=== PATIENT | female | born 1990 | race Caucasian/White ===

== ENCOUNTER → 2018-12-02 14:48 | Outpatient (CLI) | payer SELFPAY ==
--- NOTE | 2018-12-02 15:08 | ECG_ITS ---
APPROVED REPORT Exam: Resting ECG HR:73 bpm ECG Measurements Heart Rate 73 AXES ND 142 P 66 QRSd 110 QRS 49 QT 404 T 55 QTc 445 <Conclusion> Normal sinus rhythm Incomplete right bundle branch block Borderline ECG Electronically signed by : Anmol Grande, 12/04/2018 14:11:40
[2018-12-02 15:24] LABS: Urine Pregnancy, HCG Qual. Positive (Negative)
[2018-12-02 16:04] LABS: Basophils # 0.1 K/mm3 (0-0.2); Basophils % 0.7 % (0.1-2.0); Eosinophils # 0.5 K/mm3 (0.0-0.4); Eosinophils % 8.3 % (0.1-12.0); Hemoglobin 12.4 g/dL (12.2-16.2); Lymphocytes # 1.8 K/mm3 (0.7-4.5); Lymphocytes % 28.7 % (10-50); Mean Corpuscular HGB Conc 32.5 g/dL (31.8-35.4); Mean Corpuscular Hemoglobin 32.1 pg (27.0-31.2); Mean Corpuscular Volume 98.6 fl (81-99); Monocytes # 0.4 K/mm3 (0.1-1.0); Monocytes % 5.9 % (1.7-9.3); Neutrophils # 3.4 K/mm3 (1.8-7.8); Neutrophils % 56.2 % (37.0-80.0); Platelet Count 296 K/mm3 (142-424); Red Blood Count 3.86 M/mm3 (4.20-5.40); Red Cell Distribution Width 12.1 % (11.5-17.5); White Blood Count 6.1 K/mm3 (4.8-10.8)
[2018-12-12 02:59] LABS: Cotinine 2164.9 ng/mL (.); Nicotine 2251.7 ng/mL (.)
== END ==
PROVIDERS: Visit Provider Podiatrist
DX: Z01.818 Encounter for other preprocedural examination (principal); S82.51XA Displaced fracture of medial malleolus of right tibia, initial encounter for closed fracture
CPT/HCPCS: 36415; 80323; 81025; 85025; 93005; G0480

== ENCOUNTER → 2018-12-13 13:23 | Outpatient (CLI) | payer OTHER, SELFPAY ==
--- NOTE | 2018-12-13 13:34 | US_ITS ---
PROCEDURE: US OB TRANSVAGINAL CLINICAL INDICATION: US OB Dates COMPARISON: TVP US TRANSVAGINAL PREG from 06/30/2015 FINDINGS: An intrauterine gestational sac is present with a pole with a crown-rump length of 0.63 cm correlating to gestational age of 6 weeks 4 days. heart tones are present with an FHR of 126 bpm. Yolk sac is noted. 2 cm right ovarian corpus luteum cyst IMPRESSION: Live intrauterine gestation at 6 weeks 4 days Estimated due date by Ultrasound is 08/04/2019 Dictated by: Daniel Barrientos MD 12/13/2018 19:32 Electronically signed by Daniel Barrientos MD in [place] 12/13/2018 19:32
[2018-12-13 14:31] LABS: HCG,Quantitative 99537 mIU/mL
== END ==
PROVIDERS: Visit Provider Obstetrics & Gynecology
DX: Z34.90 Encounter for supervision of normal pregnancy, unspecified, unspecified trimester (principal); O26.841 Uterine size-date discrepancy, first trimester
CPT/HCPCS: 36415; 76817; 84702

== ENCOUNTER → 2018-12-30 14:08 | Outpatient (CLI) | payer OTHER, SELFPAY ==
--- NOTE | 2018-12-30 14:58 | MR_ITS ---
PROCEDURE: MR ANKLE RT WO/W CON CLINICAL INDICATION: right ankle pain, peroneal tendinitis Posttraumatic pain, fracture of the medial malleolus along with lateral ankle pain and tenderness High ankle sprain, ATFL sprain/tear, syndesmosis rupture, peroneal tendinitis COMPARISON: XR ANKLE RT MIN 3V from 11/23/2018 TECHNIQUE: Routine multiplanar multi echo sequences are performed without gadolinium enhancement. The patient is in first-trimester . Gadolinium was not given due to this fact and due to the general recommendations of the literature regarding risk benefit ratio. The nonenhanced images were reviewed and was not felt that the gadolinium enhancement would add to the overall impression. A T2 sagittal stir image was a head to sequences which nicely demonstrated the peroneal tendons with decrease magic angle artifact FINDINGS: There is abnormal signal intensity within the medial malleolar region. A nondisplaced oblique fracture involves the tip of the medial malleolus as noted on the radiograph with moderate amount of edema in this region. There also moderate amount of bone marrow edema of the medial aspect of the talus and at the neck of the talus consistent with a bone bruise. The calcaneus, navicular, cuboid, and cuneiforms have an unremarkable appearance. There is increased T2 signal with edema of the anterior tibiofibular ligament consistent with sprain/partial tear. There is complete tear of the ATFL. There is some mild edema of the PT FL which may represent sprain. A partial tear is not excluded although fibers do appear intact. There is increased T2 signal at the deltoid ligament region with sparsely of the fibers suggesting a partial tear. Slight increased T2 signal involves the distal aspect of the peroneal longus tendon suggesting partial tear or tendinitis. The tibialis posterior, flexor digitorum longus, and flexor hallucis longus as well as Achilles tendon and extensor tendons have an unremarkable appearance. There is also transverse decreased T1 and increased T2 signal at the region of the epiphyseal remnant of the distal tibia. One would not expect this appearance in a patient of 28 years of age. This could be due to an area of extensive osteopenia at the epiphyseal remnant versus a nondisplaced fracture. IMPRESSION: 1. Tear of the ATFL with suspected sprain of the PT FL 2. Partial tear versus sprain of the anterior tibiofibular ligament 3. Fracture of the medial malleolus with extensive bone marrow edema of the medial malleolus and talus consistent with bone contusion 4. Sprain/partial tear of the deltoid ligament 5. Epiphyseal remnant extensive posttraumatic osteopenia versus nondisplaced transverse fracture at the epiphyseal remnant of the distal tibia 6. Partial tear versus sprain of the distal aspect of the peroneal longus tendon. A complete tear is not felt to be present. Dictated by: Daniel Barrientos MD 12/30/2018 16:18 Electronically signed by Daniel Barrientos MD in [place] 01/01/2019 08:49
== END ==
PROVIDERS: Visit Provider Podiatrist
DX: M76.71 Peroneal tendinitis, right leg (principal); M25.571 Pain in right ankle and joints of right foot; S93.491A Sprain of other ligament of right ankle, initial encounter; S93.431A Sprain of tibiofibular ligament of right ankle, initial encounter
CPT/HCPCS: 73721

== ENCOUNTER → 2019-01-03 15:31 | Outpatient (CLI) | payer OTHER, SELFPAY ==
[2019-01-03 16:16] LABS: Basophils % 0.4 % (0.1-2.0); Eosinophils # 0.2 K/mm3 (0.0-0.4); Eosinophils % 4.2 % (0.1-12.0); Hematocrit 36.7 % (37.0-47.0); Lymphocytes # 1.1 K/mm3 (0.7-4.5); Lymphocytes % 19.1 % (10-50); Mean Corpuscular HGB Conc 32.7 g/dL (31.8-35.4); Mean Corpuscular Hemoglobin 32.7 pg (27.0-31.2); Mean Corpuscular Volume 99.9 fl (81-99); Mean Platelet Volume 7.8 fl (7.4-10.4); Monocytes # 0.2 K/mm3 (0.1-1.0); Monocytes % 3.9 % (1.7-9.3); Neutrophils # 4.2 K/mm3 (1.8-7.8); Neutrophils % 72.4 % (37.0-80.0); Platelet Count 258 K/mm3 (142-424); Red Blood Count 3.67 M/mm3 (4.20-5.40); Red Cell Distribution Width 12.7 % (11.5-17.5); White Blood Count 5.7 K/mm3 (4.8-10.8)
[2019-01-05 06:12] LABS: Hepatitis B Surface Antigen Negative (Negative); Hepatitis C Antibody <0.1 s/co ratio (0.0-0.9)
[2019-01-05 11:21] LABS: HIV Screen 4th Generation wRfx Non Reactive (Non Reactive); Rapid Plasma Reagin Ab Titer Non Reactive (NonRea<1:1)
== END ==
PROVIDERS: Visit Provider Nurse Practitioner Obstetrics & Gynecology
DX: Z34.90 Encounter for supervision of normal pregnancy, unspecified, unspecified trimester (principal)
CPT/HCPCS: 36415; 85025; 86592; 86703; 86762; 86850; 87340; 87380; G0432

== ENCOUNTER → 2019-03-20 12:58 | Outpatient (CLI) | payer OTHER, SELFPAY ==
--- NOTE | 2019-03-20 12:59 | US_ITS ---
PROCEDURE: US OB /MATERNAL DETAIL CLINICAL INDICATION: screening for chromosomal anomalies Anatomy exam, complete OB ultrasound COMPARISON: US OB TRANSVAGINAL from 12/13/2018 FINDINGS: There is a single live fetus in cephalic presentation. Placenta is anterior and grade 1. Cervix is closed measuring 4.8 cm transabdominal. Complete survey performed and was unremarkable on the submitted images as in PACS. No discrete anomalies identified on survey imaging by technologist. Active fetus. Three-vessel cord with satisfactory umbilical cord insertion. 4- chamber heart noted. Survey of brain & ventricles Unremarkable. Face and neck survey unremarkable. Diaphragm and chest views unremarkable. Abdomen: Both kidneys noted and unremarkable. Stomach noted and satisfactory. Spine: Survey of the spine satisfactory with no anomalies identified nor imaged. Both arms and legs noted. Amniotic Fluid: Adequate. Maternal adnexa: No significant findings. Measurements: Average ultrasound age 20weeks 3days. Gestational Age 20weeks 3days Estimated due date by ultrasound age 0608/04/2019. Estimated weight 343g BPD = 21weeks OFD = 20 weeks 6 days HC = 20weeks 1day AC = 20weeks 3days FL = 20weeks 1day Growth Percentile= 37% Heart Rate = 146bpm Cerebellum = 20weeks 2days Humerus = 21weeks 3days HC/AC is 1.16 CI is 0.8 FL/BPD is 0.66 FL/AC is 0.21 IMPRESSION: Live IUP in breech presentation with an average ultrasound age of 20 weeks 3 days. heart body motion noted. No obvious anomalies. Please see above for detail Dictated by: Daniel Barrientos MD 03/20/2019 17:28 Electronically signed by Daniel Barrientos MD in [place] 03/20/2019 17:28
== END ==
PROVIDERS: PCP Nurse Practitioner; Visit Provider Nurse Practitioner Obstetrics & Gynecology
DX: Z36.0 Encounter for antenatal screening for chromosomal anomalies (principal)
CPT/HCPCS: 76811

== ENCOUNTER → 2019-05-01 17:27 | Outpatient (CLI) | payer OTHER, SELFPAY | PROVIDERS: Visit Provider Nurse Practitioner Obstetrics & Gynecology | DX: Z34.90 Encounter for supervision of normal pregnancy, unspecified, unspecified trimester (principal) | CPT/HCPCS: 36415 ==

== ENCOUNTER 2019-05-03 16:10 | Outpatient (CLI) | payer OTHER, SELFPAY ==
[2019-05-03 16:30] VITALS: BP 132/70; PULSE 70; RESP 18; O2SAT 95
== END 2019-05-03 16:30 | disposition home or self-care (01) ==
LOC: INF 16:37
PROVIDERS: PCP Nurse Practitioner; Visit Provider Nurse Practitioner Obstetrics & Gynecology
DX: Z34.90 Encounter for supervision of normal pregnancy, unspecified, unspecified trimester (principal)
CPT/HCPCS: 96372; J2790

== ENCOUNTER → 2019-07-11 16:02 | Outpatient (CLI) | payer OTHER, SELFPAY | PROVIDERS: Visit Provider Nurse Practitioner Obstetrics & Gynecology | DX: Z34.90 Encounter for supervision of normal pregnancy, unspecified, unspecified trimester (principal) | CPT/HCPCS: 86403 ==

== ENCOUNTER 2019-08-02 06:21 | Inpatient (IN) | payer OTHER, SELFPAY ==
[2019-08-02 06:26] VITALS: BMI 33.6
[2019-08-02 06:40] VITALS: BP 119/69; PULSE 76; RESP 18; TEMP 36.5; O2SAT 98
[2019-08-02 07:11] VITALS: BP 119/69; PULSE 76; RESP 18; TEMP 36.5; O2SAT 98; BMI 33.6
[2019-08-02 07:33] LABS: Microscopic, Urine URINE MICROSCOPIC (MICROSCOPIC)
[2019-08-02 07:36] LABS: Appearance,Urine CLOUDY (Clear); Bilirubin,Urine Negative (Negative); Blood, Urine 1+ (Negative); Color,Urine YELLOW (Yellow); Glucose,Urine (UA) Negative (Negative); Ketones,Urine Negative (Negative); Leukocyte Esterase,Urine 3+ (Negative); Nitrate,Urine Negative (Negative); Protein,Urine Negative (Negative); Specific Gravity, Urine <= 1.005 (1.005-1.030); Urobilinogen,Urine 0.2 EU/dl (0.2)
[2019-08-02 07:46] LABS: Barbiturates Screen,Urine Negative ng/ml (<200)
[2019-08-02 07:47] LABS: Amphetamine/Metha Screen,Urine Negative ng/ml (<1000); Benzodiazepines Screen,Urine Negative ng/ml (<200)
[2019-08-02 07:48] LABS: Cannabinoid Screen,Urine Positive ng/ml (<50); Cocaine Screen,Urine Negative ng/ml (<300)
[2019-08-02 07:49] LABS: Methadone Screen,Urine Negative ng/ml (<300)
[2019-08-02 07:50] LABS: Bacteria,Urine 1+ /lpf; Opiate Screen,Urine Negative ng/ml (<300); Squamous Epithelial Cell,Urine 20-50 #/hpf (0-5); WBC,Urine 20-50 #/hpf (0-3)
[2019-08-02 07:51] LABS: Phencyclidine Screen,Urine Negative ng/ml (<25)
[2019-08-02 08:15] LABS: Basophils % 0.5 % (0.1-2.0); Eosinophils # 0.3 K/mm3 (0.0-0.4); Eosinophils % 3.8 % (0.1-12.0); Hematocrit 33.8 % (37.0-47.0); Hemoglobin 11.5 g/dL (12.2-16.2); Lymphocytes # 1.4 K/mm3 (0.7-4.5); Lymphocytes % 17.6 % (10-50); Mean Corpuscular Hemoglobin 31.5 pg (27.0-31.2); Mean Corpuscular Volume 92.6 fl (81-99); Mean Platelet Volume 8.8 fl (7.4-10.4); Monocytes # 0.5 K/mm3 (0.1-1.0); Monocytes % 5.8 % (1.7-9.3); Neutrophils # 5.8 K/mm3 (1.8-7.8); Neutrophils % 72.4 % (37.0-80.0); Platelet Count 258 K/mm3 (142-424); Red Blood Count 3.65 M/mm3 (4.20-5.40); Red Cell Distribution Width 13.9 % (11.5-17.5)
--- NOTE | 2019-08-02 08:18 | HMH.PHAINT ---
MEDICATION RECONCILIATION COMPLETED ON PATIENT USING EXTERNAL FILL HISTORY FROM PHARMACY. -HAYDER BACA, ALEXD
[2019-08-02 08:19] LABS: Coronavirus 19 IgG Antibody Negative (Negative); Coronavirus 19 IgM Antibody Negative (Negative)
[2019-08-02 08:30] VITALS: BP 122/70; PULSE 65; RESP 18; TEMP 36.8; O2SAT 98
--- NOTE | 2019-08-02 08:51 | HMH.LABNOT ---
Labor Note - Subjective: Date: 08/02/19 Time: 08:51 regular contraction - Objective: NST:: Reactive Contractions:: every 2-3 minutes Cervical Dilation:: 4 Effacement:: 100% Station: 0 Membranes: artificially ruptured - Fetus: Monitoring?: Yes monitoring type:: Internal and External Comment:: I inserted an IUPC - Assessment: Labor progressing?: Yes Cephalopelvic disproportion?: No Patient Problems: All Active Problems Vaginal bleeding in (Acute) (Acute) Ankle fracture (Acute) - Plan: Anesthesia for epidural?: Yes Continue to labor down?: Yes Plan for ?: No Continue to monitor?: Yes Start pushing?: No
--- NOTE | 2019-08-02 08:53 | HMH.OBAPHP ---
OB - H&P: HPI Antepartum - History of Present Illness Chief complaint: Term , irregular contractions History of present illness: She is a 29-year-old 3 para 2 at 39+ weeks gestational age. She has been having a few contractions as well as pressure and as result of that we have elected to induce her labor. - History of Present Criteria for establishing EDC:: LMP confirmed by 1st trimester US care: good care Ultrasounds: normal 1st trimester US, normal mid trimester US Obstetrical complications: none Medical complications: none [facility] History I have reviewed the patient's past medical history: Yes Medical History: Reports:: Anxiety, Gastroesophageal Reflux Disease(GERD), Migraine *Have you ever received a pneumonia vaccine?: No *Have you received a flu vaccine this season?: No Other Surgeries: Yes: No Previous Surgery, Other. No: Amputation: No Fractures: Yes (right foot) - *Social History Smoking Status: Current every day smoker Tobacco Type: cigarettes # Packs/Day (cigarettes): 1 #Yrs smoked (if former smoker): 12 Alcohol Intake: never Alcohol Intake Frequency:: holidays/special occasions only Substance Use Type: marijuana *Occupational Status:: unemployed Housing: house Household Members: significant other, children *Travel in the last 8 weeks: None - Psychiatric History Pschychiatric History:: Reports:: Anxiety Family Hx:: Non-contributory Para: 2 Review of Systems - Review of Systems Review of systems:: pertinent systems reviewed and negative unless documented below Meds Home Medications Medication Instructions Recorded Confirmed Type pediatric multivitamin no.49 2 tab PO DAILY tab 01/03/19 08/02/19 History albuterol sulfate 90 mcg/actuation 1 puff IH Q4HP PRN 02/13/19 08/02/19 History aerosol inhaler cetirizine 10 mg tablet 10 mg PO DAILY 02/13/19 08/02/19 History ondansetron 4 mg disintegrating 4 mg PO Q6H PRN #20 tab 07/11/19 08/02/19 Rx tablet Famotidine [Acid Laborer General] 20 mg PO DAILY 08/02/19 08/02/19 History Omeprazole Magnesium [Prilosec] 10 mg PO DAILY 08/02/19 08/02/19 History Allergies Allergy/AdvReac Type Severity Reaction Status Date / Time aspirin [ASPIRIN] Allergy Unknown Verified 08/02/19 07:14 ibuprofen [From MOTRIN] Allergy Unknown Verified 08/02/19 07:14 naproxen [NAPROXEN] Allergy Unknown Verified 08/02/19 07:14 nitrofurantoin Allergy Unknown Verified 08/02/19 07:14 [From MACROBID] sulfamethoxazole Allergy Unknown Verified 08/02/19 07:14 [From BACTRIM] trimethoprim [From BACTRIM] Allergy Unknown Verified 08/02/19 07:14 OB - H&P: Exam - Physical Exam Vital signs: Temp Pulse Resp BP Pulse Ox 97.7 F 76 18 119/69 98 08/02/19 07:11 08/02/19 07:11 08/02/19 07:11 08/02/19 07:11 08/02/19 07:11 - Constitutional no acute distress - Routine HEENT Exam Head: Present: normocephalic Eye: Present: EOMI, PERRL ENT: Present: mucous membranes moist - Routine Neck Exam Present: supple, full ROM - Routine Respiratory Exam Absent: accessory muscle use (good air entry bilaterally), respiratory distress, wheezes, crackles - Routine Cardiovascular Exam Present: RRR. Absent: murmur - Routine Abdominal Exam Present: soft, normoactive bowel sounds. Absent: tenderness, distended, guarding - Routine Rectal Exam Patient deferred: visual exam, digital exam - Routine Exam Patient deferred: external exam, groin exam, perineal exam - Routine Extremities Exam Present: full ROM. Absent: cyanosis, edema - Routine Skin Exam Present: intact. Absent: cyanosis - Routine Neurological Exam Present: alert, oriented X3 - Routine Psychiatric Exam Present: normal affect OB - Results - Labs Labs: Short CBC 08/02/19 Range/Units 08:05 WBC 8.0 (4.8-10.8) K/mm3 Hgb 11.5 L (12.2-16.2) g/dL Hct 33.8 L (37.0-47.0) % Plt Count 258 (142-424) K/mm3 Urine 08/02/19
--- NOTE | 2019-08-02 09:44 | P.PN_ITS ---
[facility] Anesthesia Checklist - Patient Identification Patient Identification: Arm Band, Verbal (Name & ) - Structural Data Admitted From: Home Planned Operative Procedure/s: Labor epidural Consent for Planned Operative Procedure(s) Verified: Yes Verified Documents: Surgical Consent, History and Physical - Chart Verification Results Verified: CBC, BMP, UA - Additional verifications Patient : Yes Anesthesia Reactions: No - Airway Assessment C-Spine Mobility Assessed: Yes TMJ Mobility Assessed: Yes Dentition: Edentulous - Neurological Assessment Level of Consciousness: Awake, Alert, Appropriate, Follows Commands Hx Seizures: No Numbness or tingling in extremities: No - Anesthesia Plan Anesthesia Risk discussed: Yes Anesthesia Plan: Verified ASA Class: III Anesthesia Type: Epidural [facility] History I have reviewed the patient's past medical history: Yes Medical History: Reports:: Anxiety, Gastroesophageal Reflux Disease(GERD), Migraine *Have you ever received a pneumonia vaccine?: No *Have you received a flu vaccine this season?: No Anesthesia experience/problems:: No prior complications Other Surgeries: Yes: Other. No: Amputation: No Fractures: Yes (right foot) - *Social History Smoking Status: Current every day smoker Tobacco Type: cigarettes # Packs/Day (cigarettes): 1 #Yrs smoked (if former smoker): 12 Alcohol Intake: never Alcohol Intake Frequency:: holidays/special occasions only Substance Use Type: marijuana *Occupational Status:: unemployed Housing: house Household Members: significant other, children *Travel in the last 8 weeks: None - Psychiatric History Pschychiatric History:: Reports:: Anxiety Family Hx:: Non-contributory Para: 2
[2019-08-02 11:35] LABS: Cord Blood PH 7.39 (7.35-7.45)
--- NOTE | 2019-08-02 13:32 | HMH.DN ---
- Delivery Note Delivery Date:: 08/02/19 Delivery Time:: 11:11 Anesthesia Type: Epidural Was labor medically induced?: Yes Induction method: per pitocin protocol Gestational age (weeks): 39 delivered prior to 39 weeks?: No Gender: Female at 1 minute: 8 at 5 minutes: 9 Delivery Procedure:: She is a 29-year-old 3 para 2 who is 39+ weeks gestational age. She was feeling pressure and was quite uncomfortable. Her last delivery was quite fast so we elected to bring her in for induction of labor. She was started on IV oxytocin had her membranes ruptured. Under labor epidural she progressed to full dilation and delivered spontaneously a liveborn female child at 11:11 AM on the morning of August 03, 2019. On deliver the head the anterior shoulder then rapidly delivered followed by the rest of the 's body atraumatically. The baby was stimulated and cried spontaneously. She was vigorous. The nasopharynx and oropharynx were bulb suction. We allowed the cord to continue to pulsate for 1 minute. The cord was then doubly clamped and cut and the was then placed on the mother's abdomen for further care. The nurses assigned Apgars of 8 at 1 minute and 9 at 5 minutes. We then obtained cord blood as well as cord pH. She received IV oxytocin and using gentle traction the cord and countertraction on the fundus I was able to easily deliver the placenta intact at 11:14 AM. He had a normal three-vessel cord. She has O Rh- blood. She is rubella immune. She was group B streptococcus negative. She plans to bottlefeed. Her estimated blood loss was approximately 400 cc. There were no perineal or vaginal lacerations. Placental Delivery Description: Spontaneous
--- NOTE | 2019-08-02 15:16 | SW/DCPLANNER ---
Addendum entered by Megan Cortes 08/24/19 09:49: CALLED CENTRAL INTAKE WITH CORD SCREEN RESULTS... AN ID# [id number] WAS GIVEN... Addendum entered by Tami Noyola 08/04/19 11:05: Zandra with CPS has stated that she spoke with patient via phone on 08/02 in AM. OB staff is currently holding this patient that is ready for discharge due to waiting on Cabinet. I have asked Zandra to fax/email prevention plan with identification so we can discharge this patient. Zandra has stated that patient is fine to discharge home with mom. I will print and give OB staff prevention plan. I will also speak with patient regarding resources at home. Patient will discharge today. Addendum entered by Tami Noyola 08/04/19 10:36: This case did meet criteria by Central Intake. Since case was reported on 08/01 patient should have been evaluated within 24 hours and has not been at this point. Case was assigned to [facility] (blast furnace auxiliaries supervisor Martha Gusman worker Zandra Chong). Central Intake department has stated that they will contact both workers to contact [facility] today. Patient is currently ready for discharge but will wait until CPS evaluates. Original Note: RECEIVED REFERRAL FOR THIS PATIENT STATING PATIENT HAD LIMITED VISITS AND POSITIVE FOR THC....SHE DELIVERED A LIVE BORN FEMALE VIA VAGINAL DELIVERY AND WAS ALSO POSITIVE FOR THC ALSO...PATIENT HAS 2 OTHER CHILDREN, GIRL AND BOY AND ONE OF THE CHILDREN HAVE A GENETIC DISABILITY BUT THE NURSE WASN'T SURE WHICH ONE... NURSING STATED SHE HAS BEEN APPROPRIATE WITH INFANT SINCE IT WAS BORN.. I DID MAKE A CALL TO [facility] AND SPOKE COURTNEY AND ID # [id number]... I WILL SEE PATIENT IN THE AM AND SPEAK WITH HER ABOUT SERVICES, WILL CALL BACK TO SEE IF IT MEETS CRITERIA FOR AN INVESTIGATION. STAY SHOULD BE SHORT, MAY DISCHARGE IN THE AM FOR PATIENT... WILL MONITOR FOR WITHDRAW SYMPTOMS...
[2019-08-02 15:24] VITALS: BP 126/66; PULSE 65; RESP 18; TEMP 36.8; O2SAT 98
[2019-08-03 06:45] LABS: Hemoglobin 10.4 g/dL (12.2-16.2)
[2019-08-03 08:06] VITALS: BP 166/84; PULSE 58; RESP 18; TEMP 36.6; O2SAT 100
[2019-08-03 09:03] LABS: Basophils % 0.5 % (0.1-2.0); Eosinophils # 0.3 K/mm3 (0.0-0.4); Eosinophils % 3.9 % (0.1-12.0); Hematocrit 32.5 % (37.0-47.0); Hemoglobin 10.9 g/dL (12.2-16.2); Lymphocytes % 25.1 % (10-50); Mean Corpuscular HGB Conc 33.5 g/dL (31.8-35.4); Mean Corpuscular Hemoglobin 30.8 pg (27.0-31.2); Mean Corpuscular Volume 91.9 fl (81-99); Mean Platelet Volume 8.4 fl (7.4-10.4); Monocytes # 0.4 K/mm3 (0.1-1.0); Monocytes % 5.5 % (1.7-9.3); Neutrophils # 5.1 K/mm3 (1.8-7.8); Neutrophils % 64.9 % (37.0-80.0); Platelet Count 269 K/mm3 (142-424); Red Blood Count 3.54 M/mm3 (4.20-5.40); Red Cell Distribution Width 13.9 % (11.5-17.5); White Blood Count 7.8 K/mm3 (4.8-10.8)
[2019-08-03 09:04] LABS: Chloride 108 mmol/L (98-107); Potassium 4.1 mmoL/L (3.5-5.1); Sodium 134 mmol/L (136-145)
[2019-08-03 09:07] LABS: Alanine Aminotransferase 13 U/L (12-78); Anion Gap 6.1 mEq/L (5-15); Aspartate Amino Transferase 34 U/L (14-36); Blood Urea Nitrogen 8 mg/dl (7-17); Carbon Dioxide 24 mmol/L (22.0-30.0); Creatinine Clearance Estimated 196 mL/min (50-200); Estimated Glomerular Filt Rate 119 ml/min (>60); GFR (African American) 144 ML/MIN (>60); Uric Acid 4.1 mg/dl (2.5-6.2)
[2019-08-03 09:08] LABS: Calcium 8.4 mg/dl (8.4-10.2); Glucose 83 mg/dl (74-100); Magnesium 1.6 mg/dl (1.6-2.3)
[2019-08-03 09:19] LABS: Activated Partial Thrombo Time 22.3 seconds (23.6-34.0); Fibrinogen 339 mg/dL (204-500); INR 0.96 (0.9-1.1); Prothrombin Time 9.9 seconds (9.4-11.8)
[2019-08-03 09:43] LABS: D-Dimer 980 ng/mL (0-400)
--- NOTE | 2019-08-03 10:29 | P.PN_ITS ---
Internal Medicine - PN: Subj *Date: 08/03/19 *Time: 10:29 Interval history: PPD #1 BP elevated this am but PIH labs negative Denies RHODES, visual changes or epigastric pain BP has returned to normal values and patient reports she was having pain at time of elevated BP this am Exam Vital signs and Labs for Last 24 Hours: Temp Pulse Resp BP Pulse Ox 98.0 F 53 L 16 141/62 H 98 08/03/19 11:51 08/03/19 11:51 08/03/19 11:51 08/03/19 11:51 08/03/19 11:51 Laboratory Results - last 24 hr 08/03/19 06:00: Hgb 10.4 L, Hct 31.0 L 08/03/19 06:00: Blood Type O Negative, Antibody Screen Negative, Screen Negative, Baby's Rh Status Positive 08/03/19 08:40: WBC 7.8, RBC 3.54 L, Hgb 10.9 L, Hct 32.5 L, MCV 91.9, MCH 30.8, MCHC 33.5, RDW 13.9, Plt Count 269, MPV 8.4, Neut % (Auto) 64.9, Lymph % (Auto) 25.1, [place] % (Auto) 5.5, Eos % (Auto) 3.9, Baso % (Auto) 0.5, Neut # (Auto) 5.1, Lymph # (Auto) 2.0, [place] # (Auto) 0.4, Eos # (Auto) 0.3, Baso # (Auto) 0.0 08/03/19 08:40: PT 9.9, INR 0.96, APTT 22.3 L, Fibrinogen 339, D-Dimer 980 H* 08/03/19 08:40: Sodium 134 L, Potassium 4.1, Chloride 108 H, Carbon Dioxide 24, Anion Gap 6.1, BUN 8, Creatinine 0.60, Estimated Creat Clear 196, Estimated GFR 119, Est GFR ( Amer) 144, Glucose 83, Uric Acid 4.1, Calcium 8.4, Magnesium 1.6, AST 34, ALT 13 08/03/19 12:05: Rhogam Infusion Rhogam release I & O for Last 24 hours: Intake & Output 08/01/19 08/02/19 08/03/1920 11:59 11:59 11:59 11:59 Weight 196 lb Microbiology Reports for the Last 24 Hours: Microbiology 08/02/19 06:40 Urine,Clean Catch Urine Culture - Preliminary NO GROWTH AFTER 24 HOURS Narrative: CONSTITUTIONAL: no acute distress HEENT: mucous membranes moist PULMONARY: breathing unlabored without audible wheezes CV: no tachycardia or visible JVD; normal LE peripheral pulses ABD: soft, NT/ND, no guarding : fundus firm at/below umbilicus SKIN: no visible rash or lesions EXT: 1+ edema LEs NEURO: alert/oriented, no altered mental status PSYCH: appropriate mood and demeanor without anxiety/depression Assessment and Plan (1) Normal delivery Current visit: Yes Status: Acute Category: Medical Code(s): O80 - Encounter for full-term uncomplicated delivery - Assessment and plan all Dx Assessment and Plan for all problems:: Continue monitoring BP will not be discharged today so will hold maternal discharge until tomorrow
[2019-08-03 11:51] VITALS: BP 141/62; PULSE 53; RESP 16; TEMP 36.7; O2SAT 98
[2019-08-03 16:05] VITALS: BP 122/65; PULSE 53; RESP 18; TEMP 36.8; O2SAT 97
[2019-08-04 07:40] VITALS: BP 146/73; PULSE 47; RESP 16; TEMP 36.7; O2SAT 97
--- NOTE | 2019-08-04 10:05 | HMH.DCSUM ---
General - General Admission date:: 08/02/19 Discharge date: 08/04/19 Hospital Course Hospital Course: IOL at 39 wks Uncomplicated course complicated by intermittent mild elevations in BP PIH evaluation negative Rhogam Administration: Given Objective Vital signs: Temp Pulse Resp BP Pulse Ox 98.0 F 47 L 16 146/73 H 97 08/04/19 07:40 08/04/19 07:40 08/04/19 07:40 08/04/19 07:40 08/04/19 07:40 Narrative: CONSTITUTIONAL: no acute distress HEENT: mucous membranes moist PULMONARY: breathing unlabored without audible wheezes CV: no tachycardia or visible JVD; normal LE peripheral pulses ABD: soft, NT/ND, no guarding : fundus firm at/below umbilicus SKIN: no visible rash or lesions EXT: 1+ edema LEs NEURO: alert/oriented, no altered mental status PSYCH: appropriate mood and demeanor without visible anxiety/depression Results Labs on day of discharge: Labs from last 24 hours 08/03/19 12:05 Rhogam Infusion Rhogam release DS: Diagnosis - Discharge Diagnosis (1) Normal delivery Status: Acute Discharge Plan - Patient Discharge Instructions ACTIVITY: Continue current activity DIET: regular diet Additional Instructions: Nothing in the vagina for 6 weeks, no heavy lifting or strenuous activity. Patient Instructions: Depression, Hemorrhage, DI for Labor and Delivery, Vaginal , DI for Pre-eclampsia, [facility] Post Discharge Instructions, Preventing the Spread of Coronavirus Discharge Instructions - Follow up Plan Follow up with: Pedro Carolina MD [Staff Physician] - 1 week (Call on Wednesday to schedule a follow up appointment for next week for a blood pressure check.) Disposition: Home, Self-Snf Medications: Home Medications Medication Instructions Recorded Confirmed Type pediatric multivitamin no.49 2 tab PO DAILY tab 01/03/19 08/02/19 History albuterol sulfate 90 mcg/actuation 1 puff IH Q4HP PRN 02/13/19 08/02/19 History aerosol inhaler cetirizine 10 mg tablet 10 mg PO DAILY 02/13/19 08/02/19 History ondansetron 4 mg disintegrating 4 mg PO Q6H PRN #20 tab 07/11/19 08/02/19 Rx tablet Famotidine [Acid Senior Billing Consultant] 20 mg PO DAILY 08/02/19 08/02/19 History Omeprazole Magnesium [Prilosec] 10 mg PO DAILY 08/02/19 08/02/19 History Prescriptions/Medication Reconciliation: New Acetaminophen [Acetaminophen 325mg tab] 650 mg PO Q4HP PRN tablet PRN Reason: Mild Pain Continued ondansetron 4 mg disintegrating tablet 4 mg PO Q6H PRN #20 tab PRN Reason: nausea and vomiting pediatric multivitamin no.49 2 tab PO DAILY tab albuterol sulfate 90 mcg/actuation aerosol inhaler 1 puff IH Q4HP PRN PRN Reason: Shortness Of Breath cetirizine 10 mg tablet 10 mg PO DAILY Omeprazole Magnesium [Prilosec] 10 mg PO DAILY Famotidine [Acid Senior Billing Consultant] 20 mg PO DAILY - Problem Reconciliation Problems Reviewed?: Yes
== END 2019-08-04 12:12 | disposition home or self-care (01) | DRG 807 ==
PROVIDERS: Obstetrics & Gynecology; Admitting Provider Nurse Practitioner Obstetrics & Gynecology; PCP Nurse Practitioner; Visit Provider Nurse Practitioner Obstetrics & Gynecology
DX: O80 Encounter for full-term uncomplicated delivery (principal); Z37.0 Single live birth; Z3A.39 39 weeks gestation of pregnancy
CPT/HCPCS: 59409; 36415; 59025; 80048; 80305; 81001; 82800; 83735; 84450; 84460; 84550; 85014; 85018; 85025; 85378; 85384; 85461; 85610; 85730; 86328; 86850; 87086; 94761; C1758; J2790

== ENCOUNTER 2023-02-13 09:18 | Emergency (ER) | payer OTHER, SELFPAY ==
[2023-02-13 09:35] VITALS: BP 141/78; PULSE 75; RESP 20; TEMP 36.6; O2SAT 97; BMI 31.6
--- NOTE | 2023-02-13 09:37 | EXP.UTC ---
Discharge Plan Disposition Patient Disposition: Home, Self-Care Condition: Good Prescriptions Prescriptions: New methylprednisolone 4 mg Tablets,Dose Pack 4 mg PO DIRECTED 6 Days Qty: 21 0RF Rx Instructions: Take 1 pack as directed for 6 days cefdinir 300 mg capsule 300 mg PO BID 7 Days Qty: 14 0RF phenazopyridine [Pyridium] 200 mg tablet 200 mg PO Q8H 2 Days Qty: 6 0RF No Action albuterol sulfate 90 mcg/actuation HFA aerosol inhaler 2 puff IH Q4HP PRN (Reason: Shortness Of Breath) cetirizine 10 mg tablet 10 mg PO DAILY omeprazole magnesium 10 MG susp,delayed release for recon 10 mg PO DAILY buspirone 10 mg Tablet 10 mg PO BID Referrals Follow up/Referrals: Vijaya Fisher APRN [Primary Care Provider] - See instructions Activity Restrictions/Add. Instructions Additional Instructions/Restrictions: Drink plenty of fluids. Take tylenol or ibuprofen for pain or fever. Take the medications as directed. Follow up with your regular doctor. GO TO THE ER FOR ANY WORSENING SYMPTOMS The pyridium will make your urine turn orange, this is an expected side effect. It will stain your clothes if it comes into contact with them. We will culture the urine. That will tell what bacteria is causing your infection and which antibiotics will treat it best. Sometimes the first antibiotic we prescribe turns out to not work against different bacteria. So, make sure you follow up within 3 days if you are not getting better. Clinical Impressions Clinical Impression: UTI (urinary tract infection), Low back pain Instructions Patient Instructions: Urinary Tract Infection, Urine Culture, DI for Urinary Tract Infection (UTI) Discharge ED Provider: Vincent Duran [facility] General Stated complaint: back pain, painful urination Time Seen by Provider: 02/13/23 09:37 History of Present Illness Provider Complaint: She states that for the past 2 days she has had worsening low back pain and dysuria. Related Data Home Medications Medication Instructions Recorded Confirmed albuterol sulfate 90 mcg/actuation 2 puff IH Q4HP PRN Shortness Of 02/13/19 02/13/23 aerosol inhaler Breath cetirizine 10 mg tablet 10 mg PO DAILY Allergy symptoms 02/13/19 02/13/23 omeprazole magnesium 10 mg oral 10 mg PO DAILY GERD 08/02/19 02/13/23 suspension,delayed release buspirone 10 mg tablet 10 mg PO BID 02/13/23 02/13/23 Previous Rx's Medication Instructions Recorded cefdinir 300 mg capsule 300 mg PO BID 7 days #14 caps 02/13/23 methylprednisolone 4 mg tablets in 4 mg PO DIRECTED 6 days #21 tabs 02/13/23 a dose pack phenazopyridine 200 mg tablet 200 mg PO Q8H 2 days #6 tabs 02/13/23 (Pyridium) Allergies Allergy/AdvReac Type Severity Reaction Status Date / Time aspirin [ASPIRIN] Allergy Unknown Verified 08/07/19 11:17 ibuprofen [From MOTRIN] Allergy Unknown Verified 08/07/19 11:17 naproxen [NAPROXEN] Allergy Unknown Verified 08/07/19 11:17 nitrofurantoin Allergy Unknown Verified 08/07/19 11:17 [From MACROBID] sulfamethoxazole Allergy Unknown Verified 08/07/19 11:17 [From BACTRIM] trimethoprim [From BACTRIM] Allergy Unknown Verified 08/07/19 11:17 tramadol Allergy Verified 02/13/23 09:47 [facility] Disclaimer: The information contained in this section may have been updated after the patient was seen, as this information can be updated by other users. Medical History (Updated 02/13/23 @ 10:10 by Vincent Duran APRN) Anxiety Asthma Urinary tract infection Social History Smoking Status: Current every day smoker tobacco type: cigarettes packs per day: 1 alcohol intake: never substance use type: marijuana current occupational status: unemployed Travel in the last 8 weeks: None household members: significant other and children housing: house ROS Obtained: Yes All systems reviewed & no additional complaints except as documented Constitutional Constitutional: Reports system reviewed and no additional complaints, except as documented, Denies chills and Denies fever(s) Eyes Eyes: Denies eye discharge ENT Ears, Nose, Mouth, and Throat: Denies dysphagia, Denies sore throat and Denies throat swelling Cardiovascular Cardiovascular: Denies chest pain and Denies dyspnea Respiratory Respiratory: Denies chest congestion, Denies cough and Denies dyspnea Gastrointestinal Gastrointestingal: Denies abdominal pain, constipation, diarrhea, dysphagia, nausea or vomiting Genitourinary Female Genitourinary: Reports as per HPI, Reports dysuria, Reports urinary frequency, Denies urinary incontinence, Reports urinary hesitancy and Reports urinary urgency Musculoskeletal Musculoskeletal: Denies arthralgias and Reports back pain Integumentary/Breasts Skin/Breast: Denies rash Neurologic Neurologic: Denies paresthesias Allergic/Immunologic Allergic/Immunologic: Denies throat swelling Physical Exam General General appearance: alert and in no apparent distress Head Head exam: atraumatic, normocephalic and normal inspection Eye Eye exam: Present normal appearance, PERRL and EOMI ENT ENT exam: Present normal exam, normal oropharynx, mucous membranes moist, TM's normal bilaterally and normal external ear exam Neck Neck exam: Present normal inspection, full ROM and trachea midline; Absent meningismus or lymphadenopathy Chest Chest inspection: Present normal inspection and symmetric chest wall rise; Absent tenderness Respiratory Respiratory exam: Present normal lung sounds bilaterally; Absent respiratory distress Cardiovascular Cardiovascular exam: Present regular rate and normal rhythm; Absent JVD Abdominal Exam Abdominal exam: Present soft and normal bowel sounds; Absent distention, tenderness or guarding Extremities Exam Extremities exam: Present normal inspection, full ROM and normal capillary refill; Absent calf tenderness Back Exam Back exam: Present normal inspection; Absent tenderness Neurological Exam Neurological exam: Present alert and oriented X3 Psychiatric Psychiatric exam: Present normal affect and normal mood Skin Skin exam: Present warm, dry, intact and normal color Lymphatic Lymphatic Findings: no adenopathy Medical Decision Making Medical Records Medical records reviewed: No I reviewed the patient's medical records. Jey Inquiry Pt receiving controlled substance: No Lab Data Lab results reviewed: Yes I reviewed the patient's lab results.
[2023-02-13 09:43] LABS: Apearance,Urine Clear (Clear); Color,Urine Yellow (Yellow)
[2023-02-13 09:44] LABS: Bilirubin,Urine Negative (Negative); Blood, Urine Negative (Negative); Glucose,Urine (UA) Negative (Negative); Ketones,Urine Negative (Negative); Protein,Urine Negative (Negative); Specific Gravity, Urine 1.015 (1.005-1.030); UTC Leukocyte Esterase,Urine Negative (Negative); UTC Nitrate,Urine Negative (Negative); Urobilinogen,Urine 0.2 EU/dl (0.2)
[2023-02-13 10:12] VITALS: BP 141/78; PULSE 75; RESP 20; TEMP 36.6; O2SAT 97
== END 2023-02-13 10:15 | disposition home or self-care (01) ==
PROVIDERS: Emergency Provider Nurse Practitioner Family; PCP Nurse Practitioner
DX: N39.0 Urinary tract infection, site not specified (principal); B96.89 Other specified bacterial agents as the cause of diseases classified elsewhere; M54.59 Other low back pain; F17.210 Nicotine dependence, cigarettes, uncomplicated; J45.909 Unspecified asthma, uncomplicated
CPT/HCPCS: 81003; 87086; 99204; 99212; G0463

== ENCOUNTER 2023-05-07 16:21 | Outpatient (CLI) | payer OTHER, SELFPAY ==
[2023-05-07 16:59] LABS: Basophils # 0.1 K/mm3 (0-0.2); Basophils % 1.5 % (0.1-2.0); Eosinophils # 0.7 K/mm3 (0.0-0.4); Eosinophils % 10.9 % (0.1-12.0); Hematocrit 45.4 % (37.0-47.0); Hemoglobin 14.5 g/dL (12.2-16.2); Lymphocytes # 1.8 K/mm3 (0.7-4.5); Lymphocytes % 29.7 % (10-50); Mean Corpuscular HGB Conc 31.9 g/dL (31.8-35.4); Mean Corpuscular Volume 100.2 fl (81-99); Mean Platelet Volume 8.1 fl (7.4-10.4); Monocytes # 0.3 K/mm3 (0.1-1.0); Monocytes % 4.9 % (1.7-9.3); Neutrophils # 3.3 K/mm3 (1.8-7.8); Neutrophils % 53.1 % (37.0-80.0); Platelet Count 283 K/mm3 (142-424); Red Blood Count 4.53 M/mm3 (4.20-5.40); Red Cell Distribution Width 13.5 % (11.5-17.5); White Blood Count 6.2 K/mm3 (4.8-10.8)
[2023-05-07 17:00] LABS: Chloride 104 mmol/L (98-107); Sodium 140 mmol/L (136-145)
[2023-05-07 17:01] LABS: Potassium 3.8 mmoL/L (3.5-5.1)
[2023-05-07 17:03] LABS: Alanine Aminotransferase 16 U/L (12-78); Albumin Level 4.4 g/dl (3.5-5.0); Albumin/Globulin Ratio 1.8 (1.1-1.8); Alkaline Phosphatase 74 U/L (38-126); Anion Gap 7.8 mEq/L (5-15); Aspartate Amino Transferase 27 U/L (14-36); Bilirubin,Total 0.5 mg/dl (0.2-1.3); Blood Urea Nitrogen 8 mg/dl (7-17); Carbon Dioxide 32 mmol/L (22.0-30.0); Estimated Glomerular Filt Rate 97 ml/min (>60); GFR (African American) 117 ML/MIN (>60); Globulin 2.4 g/dL (1.3-3.2); Total Protein,Serum 6.8 g/dl (6.3-8.2)
[2023-05-07 17:04] LABS: Calcium 9.7 mg/dl (8.4-10.2); Glucose 93 mg/dl (74-100)
[2023-05-07 17:20] LABS: HCG,Quantitative < 2 mIU/ml (0-5.42)
== END 2023-05-07 23:59 ==
PROVIDERS: PCP Student in an Organized Health Care Education/Training Program; Visit Provider Obstetrics & Gynecology
DX: Z30.09 Encounter for other general counseling and advice on contraception (principal); N93.9 Abnormal uterine and vaginal bleeding, unspecified; N94.6 Dysmenorrhea, unspecified
CPT/HCPCS: 36415; 80053; 84702; 85025

== ENCOUNTER 2023-05-14 07:18 | Day surgery (SDC) | payer OTHER, SELFPAY ==
[2023-05-11 15:04] VITALS: BMI 31.7
[2023-05-14] VITALS (10 sets, daily range): BP systolic 106–167; BP diastolic 55–95; PULSE 64–95; RESP 16–18; TEMP 36.3–43; O2SAT 93–97
[2023-05-14] MEDS: LACTATED RINGERS 1000ML 1,000 ML 25 ML IV (07:35)
--- NOTE | 2023-05-14 09:32 | EXP.OP.NOTE ---
Date of procedure: 05/14/23 Pre-op Diagnosis:: 1. Desires sterilization 2. Abnormal uterine bleeding 3. Menorrhagia Post-op Diagnosis:: 1. Desires sterilization 2. Abnormal uterine bleeding 3. Menorrhagia 4. Left ovarian hemorrhagic cyst 5. Arcuate uterus Procedure performed:: 1. Laparoscopic bilateral salpingectomy 2. Ovarian cystectomy 3. Hysteroscopy, dilation curettage, NovaSure endometrial ablation Surgeon:: Josephine Castillo DO ELECTRICAL TRANSMISSION ENGINEER:: Castro Walker Anesthesia: GETBhanu Estimated blood loss (mL): 10 Operative findings:: 1. Bimanual examination revealed an anteverted 6-week size uterus with smooth contour without any adnexal masses. 2. Laparoscopic exam revealed normal-appearing uterus, ovaries, fallopian tubes and liver. There was a left proximately 3 cm ovarian hemorrhagic cyst noted 3. Hysteroscopic exam revealed AN arcuate uterus. Bilateral ostia were noted. Normal-appearing endometrium. Operative note:: The patient was taken to the operating room where general anesthesia was obtained and noted to be adequate. SCDs were placed for thromboembolism prophylaxis and found to be working. The patient was placed in the dorsal lithotomy position using yellowfin stirrups. Timeout verified the correct patient and procedure. The patient was prepped and draped in a usual sterile fashion. A catheter was used to drain her bladder. An acorn uterine manipulator was placed and my top gloves were removed. 10mL of Lidocaine with epinepherine was injected infraumbilically and a scalpel was used to make a 5 mm infraumbilical incision with the assistance from a hemostat. The skin was tented and Optiview blunt trocar was introduced into the abdomen in the usual fashion. CO2 gas was connected with an initial pressure of 6 mmHg noted. Pneumoperitoneum was created to a pressure of 15 mmHg. The laparoscopic camera was inserted and a quick survey of the abdomen revealed grossly normal anatomy. The uterus appeared to be anteverted with a normal size shape and contour. The patient was placed in Trendelenburg. 10mLs of local anesthetic was injected and a 5mm incision was then made in the right lower quadrant with careful attention to avoid the rectus muscles and vasculature and under direct laparoscopic visualization a blunt trocar was introduced into the abdominal cavity. This process was repeated on the left side with an 8 mm trocar. The fallopian tubes were identified on the cornu of the uterus and followed out to the ovaries which revealed grossly appearing anatomy. A grasper was used to elevate the left fallopian tube. The Ligasure was used to grasp the fimbriated end of the fallopian tube, ensuring complete removal of the fimbriae, it was clamped, coagulated and transected. This process was repeated serially working towards the uterus to allow complete removal of the fallopian tube. Careful attention was given to transected the Mesosalpinx proximal to the fallopian tube. The fallopian tube was removed from the abdominal cavity and passed off the operative field to be sent to pathology. Hemostasis was noted. Images were obtained of the hemorrhagic cyst. During the process of evaluating the cyst it was ruptured. The inside of the cyst wall was coagulated and it was noted to be hemostatic. Images were obtained. Attention was then turned to the right fallopian tube and the process was repeated. Hemostasis was noted and the tube was removed along with the trocar and handed off the operative field to be sent to pathology. Pneumoperitoneum reduced, and all ports removed. The 3 abdominal incisions were closed with a single simple interrupted suture using 4-0 Monocryl. Dermabond was applied to each skin incision. The weighted speculum was replaced, and the [place] uterine manipulator was removed. The uterus sounded to 8cm. The cervix was dilated with Glenn dilators to accommodate a 7mm Hysteroscope. The hysterscope was inserted to the fundus, and appeared as described above. Images were obtained of the cavity and each tubal ostia. The hysteroscope was removed with careful attention to note the cervical length, 3.5 cm. A Telfa pad was placed in the vagina and a #2 sharp curette was used to curette the outer valdez of the endometrium. Nature curettings were collected on the Telfa pad and sent to pathology for further evaluation. The Novasure device was opened, deployed, and noted to be functioning properly. The device was inserted to the fundus, set to a length of 4.5cm, and deployed to a width of 2.7cm. Cavity integrity was assessed and adequate. The ablation was started and a power of 62W was noted. Total ablation time was 1:12 minutes. The Novasure device was removed from the cervical os and the hysterscope was reinserted. The endometrium was noted to be successfully ablated and an image was obtained. All instruments were removed from the vagina. Hemostasis was noted at the tenaculum sites. All counts were correct, per nursing. This concluded the procedure, the pt was awakened from anesthesia and transferred to the PACU in stable condition. The pt will be given 30mg IV Toradol postoperatively for pain control. Condition: stable Disposition: same day Specimens:: Bilateral fallopian tubes Endometrial curettings Complications:: None
[2023-05-14] MEDS: LIDOCAINE 1% W/EPI 1:100,000 20ML VIAL 40 ML (10:05)
--- NOTE | 2023-05-14 11:03 | EXP.ANES.CKL ---
[facility] Disclaimer: The information contained in this section may have been updated after the patient was seen, as this information can be updated by other users. Medical History Anxiety Urinary tract infection Asthma Surgical History History of foot surgery Family History Family/Other Cancer aunt-breast Other Hypertension Social History Smoking Status: Current every day smoker tobacco type: cigarettes packs per day: 1 alcohol intake: never substance use type: marijuana current occupational status: unemployed Travel in the last 8 weeks: None household members: significant other and children housing: house [facility] Anesthesia Checklist Patient Identification Patient Identification: Arm Band Structural Data Admitted From: Home Planned Operative Procedure/s: Laparoscopic Bilateral Salpingectomy, Hysteroscopy, D&C, Novasure Ablation Consent for Planned Operative Procedure(s) Verified: Yes Verified Documents: Surgical Consent and History and Physical NPO Status Verified Time NPO: 00:00 Additional verifications Anesthesia Reactions: No Hx Blood Transfusions: No Airway Assessment Mallampati Score:: Class II C-Spine Mobility Assessed: Yes TMJ Mobility Assessed: Yes Dentition: Good Dentition Neurological Assessment Level of Consciousness: Awake and Alert Anesthesia Plan Anesthesia Risk discussed: Yes Anesthesia Plan: Verified ASA Class: II Anesthesia Type: General
--- NOTE | 2023-05-14 11:04 | EXP.ANES.I ---
[facility] Anesthesia Record Part I Anesthesia Record I Intake, IV Amount: 1,000 Hydration: Adequate Estimated blood loss (mL): 10 Urine output (mL): 100 Blood Products used (#): none Blood Pressure: 145/89 SaO2: 93 Pulse Rate: 95 Airway Patency: Patent Respiratory Rate: 16 Temperature: 97.8 F Patient is:: Drowsy and Stable Stable to PACU at:: 11:00
[2023-05-14] MEDS: HYDROMORPHONE 2MG/ML SYRINGE 0.5 MG IV (11:19)
[2023-05-14] MEDS: MORPHINE 2MG/ML SYRINGE 2 MG IV (11:25)
[2023-05-14] MEDS: OXYCODONE 5MG W/APAP 325MG TABLET 2 EACH PO (11:49)
--- NOTE | 2023-05-14 13:33 | EXP.ANES.II ---
[facility] Anesthesia Record Part II Anesthesia Record Part II Discharge Time: 11:30 Destination: Surgical Day Care (OP Surgery) PACU nurse assessment reviewed?: Yes Patient Condition:: Good Anesthesia Complications:: None Swallowing reflex intact?: Yes Airway Patency: Patent Cyanosis?: No Blood Pressure: 150/63 SaO2: 96 Respiratory Rate: 17 Pulse Rate: 77 Temperature: 98.7 F Mental Status: Alert & Oriented Pain level:: 6 Nausea and/or vomitting:: None Intake, IV Amount: 0 Hydration: Adequate
== END 2023-05-14 12:00 | disposition home or self-care (01) ==
PROVIDERS: PCP Student in an Organized Health Care Education/Training Program; Visit Provider Obstetrics & Gynecology
PROC: (CPT 58661; principal; 2023-05-14 09:15)
DX: Z30.2 Encounter for sterilization (principal); N93.9 Abnormal uterine and vaginal bleeding, unspecified; N92.0 Excessive and frequent menstruation with regular cycle; N83.02 Follicular cyst of left ovary; Q51.810 Arcuate uterus
CPT/HCPCS: 58661; 58999; 58563; J3490; J2405